=== PATIENT | male | born 1965 | race Caucasian/White ===

== ENCOUNTER 2018-06-15 12:19 | Observation (INO) ==
[2018-06-15] MEDS ORDERED: XYLOCAINE 1%/SOD BICARB 20 ML VIAL INFIL ONE (12:39)
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
[2018-06-15] MEDS ORDERED: AMPICILLIN/SULBACTAM SOD 3,000 MG in 0.9 % SODIUM CHLORIDE 100 ML IV STA (13:24)
[2018-06-15] MEDS ORDERED: MoRPHine SULFATE 4 MG/ML 1 ML CARP\\VIAL IV STA (13:27)
--- NOTE | 2018-06-15 13:28 | XRay Report ---
LEFT FIFTH FINGER 3 VIEWS CLINICAL HISTORY: Fifth finger injury. FINDINGS: 3 views of the left fifth finger are obtained. No prior studies are available for compariso n at the time of dictation. The skeletal structures are well mineralized there is a horizontally orie nted end distracted fracture through the proximal shaft of the fifth proximal phalanx. There is apex volar angulation, as well as overlying soft tissue edema. Fracture does not extend to the articular s urface. The fifth metacarpophalangeal and phalangeal joints are preserved. No radiodense foreign body is seen. Foci of subcutaneous gas are identified and may be related to laceration. IMPRESSION: 1. Fracture of the fifth proximal phalanx as above. 2. Foci of subcutaneous gas suggest laceration. Clinical correlation will be required. Electronically signed by: Eliezer Giang M.D. 06/15/2018 1:27 PM
[2018-06-15 13:44] LABS: Basophils # (auto) 0.06 K/uL (0-0.2); Basophils % (auto) 0.9 %; Eosinophils # (auto) 0.13 K/uL (0-0.5); Eosinophils % (auto) 1.9 %; Hematocrit (blood only) 45.3 % (42-52); Hemoglobin 15.6 g/dL (14.0-18.0); Immature Granulocytes # (auto) 0.01 K/uL (0.00-0.02); Immature Granulocytes % (auto) 0.1 %; Lymphocytes # (auto) 1.23 K/uL (1.2-3.4); Lymphocytes % (auto) 17.7 %; Mean Corpuscular Hgb Conc 34.4 g/dL (32-36); Mean Corpuscular Volume 89.7 fL (80-100); Mean Platelet Volume 9.5 fL (7.4-10.4); Monocytes # (auto) 0.92 K/uL (0.11-0.59); Monocytes % (auto) 13.2 %; Neutrophils % (auto) 66.2 %; Platelet Count 339 K/uL (130-400); RDW Coefficient of Variation 13.6 % (11.5-14.5); RDW Standard Deviation 44.4 fL (36.4-46.3); Red Blood Count 5.05 M/uL (4.7-6.1); White Blood Count 6.95 K/uL (4.8-10.8)
[2018-06-15 14:00] LABS: INR 0.9 (0.9-1.1); Prothrombin Time 9.4 Seconds (9.0-12.0)
[2018-06-15 14:01] LABS: Albumin Level 3.7 gm/dl (3.4-5.0); BUN Creatinine Ratio 14.4 (10-20); Calcium 8.9 mg/dl (8.5-10.1); Creatinine Clr Calc Pharmacy 90.8 ml/min; Est GFR (African American) 113.7; Est GFR (Non-African American) 98.1
[2018-06-15 14:03] LABS: Albumin Globulin Ratio 0.9 (0.9-2); Bilirubin,Total 0.5 mg/dl (0.2-1); Total Protein 7.7 gm/dl (6.4-8.2)
[2018-06-15] MEDS ORDERED: SUCCINYLCHOLINE CHLORIDE 20 MG/ML 10 ML VIAL ONE (14:54)
[2018-06-15] MEDS ORDERED: MIDAZOLAM HCL 1 MG/ML 2ML VIAL ONE (14:54)
[2018-06-15] MEDS ORDERED: LIDOCAINE HCL 2% 2 ML VIAL/AMP(20MG/ML) INFIL ONE (14:54)
[2018-06-15] MEDS ORDERED: fentaNYL citrate 100 MCG/2 ML VIAL ONE ×2 (14:54→16:07)
[2018-06-15] MEDS ORDERED: ONDANSETRON INJ 2 MG/ML 2 ML VIAL ONE (14:54)
[2018-06-15] MEDS ORDERED: DEXAMETHASONE SOD INJ 4 MG/ML VIAL ONE (14:54)
[2018-06-15] MEDS ORDERED: PROPOFOL IV EMULSION 10 MG/ML 20 ML VIAL IV ONE (14:54)
[2018-06-15] MEDS ORDERED: ATROPINE SULFATE 0.1 MG/ML 10ML SYR IV PRN (14:55)
[2018-06-15] MEDS ORDERED: ONDANSETRON INJ 2 MG/ML 2 ML VIAL IV PRN (14:55)
[2018-06-15] MEDS ORDERED: ePHEDrine sulfate 50 MG/ML AMP IV PRN (14:55)
[2018-06-15] MEDS ORDERED: HYDROmorphone INJ 1 MG/ML SYRINGE IV PRN ×2 (14:55→17:43)
--- NOTE | 2018-06-15 15:12 | Anesthesiology Consultation ---
Date of Service June 15, 2018 Assessment & Plan (1) Encounter for pre-operative examination: Chart Review Chart Review: Acceptable Risk for Surgery and Patient NOT seen in Pre Admission Testing Consults Requested none NPO Date Last Intake of Fluids: 06/15/18 Time Last Intake of Fluids: 09:00 Date Last Intake of Solids: 06/15/18 Time Last Intake of Solids: 09:00 History Surgery Operation Date: 06/15/18 14:25 Proposed Procedures p Left Little Finger Incision and Drainage, - Juan Diego Swan MD s Closed Reduction and Pinning - Juan Diego Swan MD Height/Weight Height: 5 ft 7 in Weight: 72.3 kg Allergies Allergy/AdvReac Type Severity Reaction Status Date / Time No Known Allergies Allergy Unverified 06/15/18 13:59 Medications Home Medications Medication Instructions Recorded Confirmed Last Taken No Known Home Medications 06/15/18 06/15/18 Unknown Past Medical History healthy Past Surgical History none Past Anesthesia History No Hx of Anesthesia Complications and No Family Hx of Anesthesia Complications History of PONV No Motion Sickness Screening History of Motion Sickness: No Social History Smoking Status: Current every day smoker Do You Dip or Chew Tobacco: No Hx Alcohol Use: Yes alcohol intake frequency: 0-2 drinks per day Hx Substance Use: No substance use type: does not use Exercise / Class Metabolic Activity II 4-5 Yardwork/Stairs/Walk up hill Physical Exam Vital Signs Last Vital Signs Temp 36.4 C L 06/15/18 15:02 Pulse 98 H 06/15/18 15:02 Resp 18 06/15/18 15:02 BP 132/90 06/15/18 15:02 Pulse Ox 99 06/15/18 15:02 Testing Electrocardiogram Date: 06/15/18 Findings: + NSR @ (100) Laboratory Results 06/15/18 13:30 06/15/18 13:30 PT 9.4 Seconds (9.0-12.0) 06/15/18 13:30 INR 0.9 (0.9-1.1) 06/15/18 13:30
[2018-06-15] MEDS ORDERED: BACITRACIN INJ 50,000 UNIT VIAL ONE (15:17)
[2018-06-15] MEDS ORDERED: BUPIVACAINE 0.5 % 5 MG/1 ML MPF 30ML VIAL ONE (15:17)
[2018-06-15] MEDS ORDERED: POVIDONE-IODINE OP SOLN 30 ML BTL ONE (15:35)
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
[2018-06-15] MEDS ORDERED: ePHEDrine sulfate 50 MG/ML SYR ONE (16:24)
[2018-06-15] MEDS ORDERED: CEFAZOLIN 1000MG 1,000 MG/7.5 ML SYR IV SCH (16:45)
--- NOTE | 2018-06-15 17:13 | Fluoroscopy Report ---
FL finger LT 2V CLINICAL HISTORY: ORIF LEFT 5TH FINGER COMPARISON STUDY: Left fifth finger 06/15/2018. FLUOROSCOPY TIME: 45 seconds. FINDINGS: 2 fluoroscopic spot images of the left fifth finger demonstrate pinning of the proximal pha lanx fracture. The alignment is near-anatomic. IMPRESSION: Fluoroscopy provided for pinning of the left fifth digit fracture. Electronically signed by: Klaus Ochoa M.D. 06/15/2018 5:12 PM
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
[2018-06-15] MEDS ORDERED: OXYCODONE/ACETAMINOPHEN 5mg/325mg TAB PO PRN (17:43)
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
[2018-06-15] MEDS ORDERED: LABETALOL HCL IV 5 MG/ML 20ML IV ONE (17:56)
[2018-06-15] MEDS: fentaNYL citrate 100 MCG/2 ML VIAL IV PRN ×2 (17:59→18:09)
[2018-06-15] MEDS ORDERED: LABETALOL HCL IV 5 MG/ML 20ML IV PRN (18:12)
--- NOTE | 2018-06-15 18:36 | Anesthesiology Progress Note ---
Date of Service June 15, 2018 Anesthesia Post Procedure Vital Signs Vital Signs: Temp Pulse Pulse Pulse Resp BP BP 06/15/18 18:30 36.9 C 79 12 123/87 06/15/18 18:20 74 12 127/91 06/15/18 18:10 91 H 12 142/99 H 06/15/18 18:00 100 H 17 128/108 H 06/15/18 17:50 98 H 19 140/106 H 06/15/18 17:40 100 H 16 152/113 H 06/15/18 17:33 36.3 C L 110 H 20 145/105 H 06/15/18 15:02 36.4 C L 98 H 18 132/90 06/15/18 14:52 98 H 18 131/90 06/15/18 14:00 111 H 18 136/98 06/15/18 12:21 36.6 C 112 H 20 126/87 Pulse Ox 06/15/18 18:30 98 06/15/18 18:20 98 06/15/18 18:10 93 06/15/18 18:00 94 06/15/18 17:50 100 06/15/18 17:40 100 06/15/18 17:33 100 06/15/18 15:02 99 06/15/18 14:52 06/15/18 14:00 99 06/15/18 12:21 99 Pain Intensity Left Hand: Pain Intensity: 4 Notes Mental Status: alert / awake / arousable and participated in evaluation Patient Amnestic to Procedure: Yes Nausea / Vomiting: adequately controlled Pain: adequately controlled Airway Patency, RR, SpO2: stable & adequate BP & HR: stable & adequate Hydration State: stable & adequate Anesthetic Complications: no major complications apparent and Pt Satisfied with anesthetic care
[2018-06-15] MEDS ORDERED: SODIUM CHLORIDE 0.9% 1000ML 1,000 ML IV SCH (19:00)
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
[2018-06-15] MEDS: AMPICILLIN/SULBACTAM SOD 3,000 MG in 0.9 % SODIUM CHLORIDE 100 ML IV SCH (20:16)
[2018-06-16] MEDS: AMPICILLIN/SULBACTAM SOD 3,000 MG in 0.9 % SODIUM CHLORIDE 100 ML IV SCH ×3 (02:33→14:00)
--- NOTE | 2018-06-16 08:39 | Anesthesiology Progress Note ---
Date of Service June 16, 2018 Anesthesia Post Procedure Vital Signs Vital Signs: Temp Pulse Pulse Pulse Pulse Resp BP 06/16/18 07:35 36.5 C 89 16 06/16/18 03:29 36.9 C 95 H 14 06/15/18 23:15 36.9 C 87 16 06/15/18 22:13 37 C 104 H 16 06/15/18 21:23 37.2 C 101 H 16 06/15/18 20:00 37 C 100 H 16 06/15/18 19:37 36.6 C 97 H 16 06/15/18 19:02 36.7 C 85 16 06/15/18 18:45 73 12 06/15/18 18:30 36.9 C 79 12 06/15/18 18:20 74 12 06/15/18 18:10 91 H 12 06/15/18 18:00 100 H 17 06/15/18 17:50 98 H 19 06/15/18 17:40 100 H 16 06/15/18 17:33 36.3 C L 110 H 20 06/15/18 15:02 36.4 C L 98 H 18 06/15/18 14:52 98 H 18 06/15/18 14:00 111 H 18 06/15/18 12:21 36.6 C 112 H 20 126/87 BP Pulse Ox 06/16/18 07:35 108/71 95 06/16/18 03:29 116/76 94 06/15/18 23:15 123/81 95 06/15/18 22:13 118/80 96 06/15/18 21:23 117/73 96 06/15/18 20:00 107/73 95 06/15/18 19:37 117/81 97 06/15/18 19:02 131/87 06/15/18 18:45 119/88 97 06/15/18 18:30 123/87 98 06/15/18 18:20 127/91 98 06/15/18 18:10 142/99 H 93 06/15/18 18:00 128/108 H 94 06/15/18 17:50 140/106 H 100 06/15/18 17:40 152/113 H 100 06/15/18 17:33 145/105 H 100 06/15/18 15:02 132/90 99 06/15/18 14:52 131/90 02/15/19 14:00 136/98 99 06/15/18 12:21 99 Pain Intensity Left Hand: Pain Intensity: 2 Notes Mental Status: alert / awake / arousable Patient Amnestic to Procedure: Yes Nausea / Vomiting: adequately controlled Pain: adequately controlled Airway Patency, RR, SpO2: stable & adequate BP & HR: stable & adequate Hydration State: stable & adequate Anesthetic Complications: no major complications apparent and Pt Satisfied with anesthetic care
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
== END 2018-06-16 15:00 | disposition home or self-care (01) ==
LOC: ED 12:19 → ASU 13:00 → 3E 15:00 → ASU 15:00